=== PATIENT | male | born 1955 | race Two or more races ===

== ENCOUNTER 2021-07-01 09:17 | Inpatient (IN) | payer MEDICARE, MEDICAID ==
[~2021-07-01] VITALS: Ht 177.8 cm; Wt 98.5 kg
[2021-07-01] MEDS ORDERED: SODIUM CHLORIDE 0.9% 1,000 ML IVB ONE (10:15)
[2021-07-01] MEDS ORDERED: LORazepam 2MG/ML-1ML VIAL IV ONE (10:15)
[2021-07-01 12:19] LABS: Alcohol, Urine < 3.0 mg/dL (0-10); Amphetamine Screen, Urine NEGATIVE (NEGATIVE); Barbiturate Scree,Urine NEGATIVE (NEGATIVE); Benzodiazephine Screen, Urine NEGATIVE (NEGATIVE); Cannabinoid Screen, Urine NEGATIVE (NEGATIVE); Cocaine Screen, Urine NEGATIVE (NEGATIVE); Opiate Scree,Urine NEGATIVE (NEGATIVE); Phencyclidine Screen, Urine NEGATIVE (NEGATIVE)
[2021-07-01 12:21] LABS: Urine Bacteria FEW /hpf (None Seen); Urine Blood 1+ /uL (Negative); Urine Hyaline Cast FEW /lpf (0 - 2); Urine Specific Gravity 1.021 (1.001-1.035); Urine WBC 28 /hpf (0 - 3)
[2021-07-01 13:28] LABS: Eosinophils # (auto) 0 10 ^3/uL (0-0.8); Mean Corpuscular Volume 103.1 fL (80.0-100.0); Monocytes # (auto) 1.9 10 ^3/uL (0-1.3)
[2021-07-01 13:30] LABS: Basophils # (auto) 0 10 ^3/uL (0-0.2); Basophils % (auto) 0.3 % (0.0-2.0); Hemoglobin 15.2 g/dL (13.5-17.5); Lymphocytes # (auto) 0.4 10 ^3/uL (0.4-5.4); Lymphocytes % (auto) 3.2 % (10.0-50.0); Mean Corpuscular Hemoglobin 30.1 pg (28.0-32.0); Mean Corpuscular Hgb Conc. 29.2 g/dL (32.0-36.0); Monocytes % (auto) 14.1 % (0.0-12.0); Neutrophils # (auto) 11.2 10 ^3/uL (1.6-8.6); Neutrophils % (auto) 82.4 % (37.0-80.0); Red Blood Cells 5.04 10^6/uL (4.5-5.90); Red Cell Distribution Width 13.7 % (11.8-14.3); White Blood Cell 13.6 10^3/uL (4.4-10.8)
[2021-07-01 13:43] LABS: INR 0.93 (0.9-1.15); Partial Thromboplastin Time 23.7 sec (23.6-33.0)
[2021-07-01 14:05] LABS: Albumin 2.4 g/dL (3.4-5.0); Calcium 8.8 mg/dL (8.5-10.1); Magnesium 3.9 mg/dL (1.6-2.6); Potassium 5.2 mmol/L (3.5-5.1)
[2021-07-01 14:14] LABS: BUN/Creatinine Ratio 47.9; Bilirubin, Total 0.4 mg/dL (0.2-1.0); Total Protein 6.8 g/dL (6.4-8.2)
[2021-07-01] MEDS ORDERED: POTASSIUM CHL 10MEQ/100ML 300 ML IV PRN (15:00)
[2021-07-01] MEDS ORDERED: DEXTROSE (50%) 50ML SYRG IV PRN (15:00)
[2021-07-01] MEDS ORDERED: INSULIN LANTUS (GLARGINE) 1 /0.01ml (100units/ml) SC ONE (15:00)
[2021-07-01] MEDS ORDERED: SODIUM CHLORIDE 0.9% 1,000 ML IV SCH ×5 (15:00→21:45)
[2021-07-01] MEDS ORDERED: POTASSIUM CHL 20MEQ/100ML 100 ML IV PRN ×2 (15:00→21:30)
[2021-07-01] MEDS: InsuLIN R (HUMAN) 100 UNITS in SODIUM CHL 0.9% 99 ML IV SCH (15:25)
[2021-07-01] MEDS: ACCU-CHEK COMFORT CURVE STRIP VI SCH ×6 (15:26→22:00)
[2021-07-01] MEDS ORDERED: MORPHINE SULFATE INJECTION 2 MG/ML SYRG IV PRN ×4 (15:45→16:45)
[2021-07-01] MEDS ORDERED: NITROGLYCERIN 0.4 MG SL TAB SL PRN ×2 (15:45→16:45)
[2021-07-01] MEDS ORDERED: LACTATED RINGER'S 2,000 ML IV ONE (15:45)
[2021-07-01] MEDS ORDERED: SODIUM CHLORIDE 0.9% 2,000 ML IV ONE (15:45)
[2021-07-01] MEDS ORDERED: LABETALOL HCL 5 MG/ML 4ML SYRINGE IV ONE (16:30)
[2021-07-01] MEDS ORDERED: ACETAMINOPHEN 325 MG TAB PO PRN (16:30)
[2021-07-01] MEDS ORDERED: VANCOMYCIN PER PHARMACY 1,000 MG IV SCH (16:30)
[2021-07-01] MEDS ORDERED: PANTOPRAZOLE 40 MG/10 ML VIAL INJ IV ONE (16:45)
[2021-07-01] MEDS ORDERED: DOCUSATE SOD 100 MG CAP PO PRN (16:45)
[2021-07-01] MEDS ORDERED: ONDANSETRON HCL 4 MG/2 ML VIAL IV PRN (16:45)
[2021-07-01] MEDS ORDERED: IPRATROPIUM BROM 0.5 MG/2.5ML INH SOL NEB ONE (16:45)
[2021-07-01] MEDS ORDERED: BUDESONIDE (INHALATION) 0.5 MG/2 ML NEB NEB ONE (16:45)
[2021-07-01] MEDS ORDERED: HYDROcodone-ACET 5/325MG TAB PO PRN (16:45)
[2021-07-01] MEDS ORDERED: LORazepam 0.5 MG TAB PO PRN (16:45)
[2021-07-01 17:19] LABS: Cholesterol 191 mg/dL (< 200); HDL Cholesterol 20 mg/dL (40-59); Triglycerides 505 mg/dL (< 150)
[2021-07-01] MEDS ORDERED: IPRATROPIUM BROM 0.5 MG/2.5ML INH SOL NEB SCH (18:00)
[2021-07-01] MEDS: SODIUM CHLORIDE 0.9% 1,000 ML IV SCH ×5 (18:26→23:45)
[2021-07-01] MEDS: PIPERACILLIN-TAZOB 3.375GM 100 ML IV SCH (18:28)
[2021-07-01] MEDS ORDERED: LABETALOL HCL 5 MG/ML 4ML SYRINGE IV PRN (18:30)
[2021-07-01] MEDS ORDERED: ENOXAPARIN SOD 100 MG/1 ML SYRINGE SC ONE (18:45)
[2021-07-01 18:55] LABS: Potassium 3.3 mmol/L (3.5-5.1)
[2021-07-01 19:03] LABS: BUN/Creatinine Ratio 51.2
[2021-07-01] MEDS ORDERED: POTASSIUM CHL 20MEQ/100ML 200 ML IV PRN (21:30)
[2021-07-01] MEDS ORDERED: ATORVASTATIN 20 MG TAB PO SCH (22:00)
[2021-07-01] MEDS ORDERED: BUDESONIDE (INHALATION) 0.5 MG/2 ML NEB NEB SCH (22:00)
[2021-07-01] MEDS ORDERED: POTASSIUM CHL 20MEQ/100ML 100 ML IV ONE (22:10)
[2021-07-01] MEDS ORDERED: POTASSIUM CHL 10MEQ/100ML 100 ML IV PRN (23:00)
[2021-07-01] MEDS ORDERED: VANCOMYCIN 1GM/250ML 250 ML IV ONE (23:15)
[2021-07-02] MEDS: PIPERACILLIN-TAZOB 3.375GM 100 ML IV SCH ×4 (00:49→18:00)
[2021-07-02] MEDS: POTASSIUM CHL 10MEQ/100ML 300 ML IV PRN ×2 (00:51→10:05)
[2021-07-02] MEDS: ACCU-CHEK COMFORT CURVE STRIP VI SCH ×16 (01:34→22:30)
[2021-07-02] MEDS: LORazepam 2MG/ML-1ML VIAL IV PRN ×2 (02:16→06:08)
[2021-07-02] MEDS: SODIUM CHLORIDE 0.9% 1,000 ML IV SCH ×5 (02:30→13:07)
[2021-07-02 03:28] LABS: BUN/Creatinine Ratio 46.5; Calcium 7.9 mg/dL (8.5-10.1); Potassium 3.4 mmol/L (3.5-5.1)
[2021-07-02] MEDS ORDERED: POTASSIUM CHL 10MEQ/100ML 100 ML IV PRN (05:30)
[2021-07-02 07:38] LABS: Basophils # (auto) 0 10 ^3/uL (0-0.2); Basophils % (auto) 0.2 % (0.0-2.0); Eosinophils # (auto) 0 10 ^3/uL (0-0.8); Eosinophils % (auto) 0.1 % (0.0-7.0); Hematocrit 40.9 % (41.0-53.0); Hemoglobin 13.8 g/dL (13.5-17.5); Lymphocytes # (auto) 0.4 10 ^3/uL (0.4-5.4); Lymphocytes % (auto) 3.1 % (10.0-50.0); Mean Corpuscular Hemoglobin 30.6 pg (28.0-32.0); Mean Corpuscular Hgb Conc. 33.8 g/dL (32.0-36.0); Mean Corpuscular Volume 90.7 fL (80.0-100.0); Monocytes # (auto) 1.5 10 ^3/uL (0-1.3); Monocytes % (auto) 11.4 % (0.0-12.0); Neutrophils # (auto) 11.2 10 ^3/uL (1.6-8.6); Neutrophils % (auto) 85.2 % (37.0-80.0); Red Blood Cells 4.51 10^6/uL (4.5-5.90); Red Cell Distribution Width 12.7 % (11.8-14.3); White Blood Cell 13.1 10^3/uL (4.4-10.8)
[2021-07-02 07:45] LABS: Potassium 3.7 mmol/L (3.5-5.1)
[2021-07-02 07:48] LABS: INR 0.96 (0.9-1.15); Partial Thromboplastin Time 24.9 sec (23.6-33.0)
[2021-07-02 07:58] LABS: Albumin 1.9 g/dL (3.4-5.0); BUN/Creatinine Ratio 44.3; Bilirubin, Total 0.2 mg/dL (0.2-1.0); Calcium 7.5 mg/dL (8.5-10.1); Magnesium 2.1 mg/dL (1.6-2.6); Phosphorus 3.9 mg/dL (2.5-4.90); Total Protein 5.5 g/dL (6.4-8.2); Uric Acid 7.8 mg/dL (3.5-7.2)
[2021-07-02] MEDS: ASPirin 81 mg TAB PO SCH (10:00)
[2021-07-02] MEDS: PANTOPRAZOLE 40 MG/10 ML VIAL INJ IV SCH (10:00)
[2021-07-02 12:22] LABS: BUN/Creatinine Ratio 38.8; Calcium 7.3 mg/dL (8.5-10.1); Potassium 3.8 mmol/L (3.5-5.1)
[2021-07-02] MEDS ORDERED: MAGNESIUM SULFATE 1GM/100ML 200 ML IV PRN (13:45)
[2021-07-02] MEDS: D5W/SOD CHL 0.45%/KCL 20MEQ 1,000 ML IV SCH ×2 (14:09→21:00)
[2021-07-02] MEDS: InsuLIN R (HUMAN) 100 UNITS in SODIUM CHL 0.9% 99 ML IV SCH ×2 (15:09→15:18)
[2021-07-02] MEDS ORDERED: InsuLIN R (HUMAN) 100 UNITS in SODIUM CHL 0.9% 99 ML IV SCH (18:30)
[2021-07-02 20:57] LABS: BUN/Creatinine Ratio 30.6; Potassium 3.7 mmol/L (3.5-5.1)
[2021-07-02] MEDS ORDERED: ENOXAPARIN SOD 100 MG/1 ML SYRINGE SC SCH (22:00)
[2021-07-02] MEDS: INSULIN LANTUS (GLARGINE) 1 /0.01ml (100units/ml) SC SCH (23:00)
[2021-07-03] MEDS: ACCU-CHEK COMFORT CURVE STRIP VI SCH ×3 (00:16→03:00)
[2021-07-03 02:19] LABS: BUN/Creatinine Ratio 27.5; Calcium 6.9 mg/dL (8.5-10.1)
[2021-07-03] MEDS: D5W/SOD CHL 0.45%/KCL 20MEQ 1,000 ML IV SCH (03:05)
[2021-07-03] MEDS ORDERED: LEVALBUTEROL HCL 1.25 MG/3 ML NEB ONE (03:07)
[2021-07-03] MEDS ORDERED: IPRATROPIUM BROM 0.5 MG/2.5ML INH SOL ONE (03:07)
[2021-07-03] MEDS ORDERED: IPRATROPIUM BROM 0.5 MG/2.5ML INH SOL NEB ONE (03:15)
[2021-07-03] MEDS ORDERED: EPINEPHrine HCL 0.5 ML NEB ONE (03:29)
[2021-07-03] MEDS ORDERED: EPINEPHrine HCL 0.5 ML NEB NEB ONE (03:30)
[2021-07-03] MEDS: InsuLIN REG 1unit/0.01ml Soln (100units/ml) SC SCH ×5 (04:00→20:27)
[2021-07-03] MEDS ORDERED: LEVALBUTEROL HCL 1.25 MG/3 ML NEB NEB SCH (06:00)
[2021-07-03] MEDS: PIPERACILLIN-TAZOB 3.375GM 100 ML IV SCH ×4 (06:09→12:18)
[2021-07-03 08:53] LABS: Basophils # (auto) 0 10 ^3/uL (0-0.2); Basophils % (auto) 0.4 % (0.0-2.0); Eosinophils # (auto) 0.1 10 ^3/uL (0-0.8); Eosinophils % (auto) 0.5 % (0.0-7.0); Hematocrit 41.5 % (41.0-53.0); Hemoglobin 13.9 g/dL (13.5-17.5); Lymphocytes # (auto) 0.7 10 ^3/uL (0.4-5.4); Lymphocytes % (auto) 6.3 % (10.0-50.0); Mean Corpuscular Hemoglobin 31.4 pg (28.0-32.0); Mean Corpuscular Hgb Conc. 33.5 g/dL (32.0-36.0); Mean Corpuscular Volume 93.6 fL (80.0-100.0); Monocytes # (auto) 1.2 10 ^3/uL (0-1.3); Monocytes % (auto) 11.9 % (0.0-12.0); Neutrophils # (auto) 8.3 10 ^3/uL (1.6-8.6); Neutrophils % (auto) 80.9 % (37.0-80.0); Red Blood Cells 4.44 10^6/uL (4.5-5.90); Red Cell Distribution Width 12.8 % (11.8-14.3); White Blood Cell 10.3 10^3/uL (4.4-10.8)
[2021-07-03 09:44] LABS: Albumin 1.7 g/dL (3.4-5.0); BUN/Creatinine Ratio 24.1; Calcium 7.3 mg/dL (8.5-10.1); Magnesium 1.8 mg/dL (1.6-2.6)
[2021-07-03 09:56] LABS: Bilirubin, Total 0.2 mg/dL (0.2-1.0); Total Protein 6.3 g/dL (6.4-8.2)
[2021-07-03] MEDS: ASPirin 81 mg TAB PO SCH ×2 (10:00→10:14)
[2021-07-03] MEDS: PANTOPRAZOLE 40 MG/10 ML VIAL INJ IV SCH (10:13)
[2021-07-03] MEDS ORDERED: cefTRIAXone 1GM/50ML D5W 50 ML IV ONE (14:45)
[2021-07-03] MEDS ORDERED: D5W/SOD CHL 0.45% 1,000 ML IV SCH (15:00)
[2021-07-03] MEDS ORDERED: MAGNESIUM SULFATE 1GM/100ML 100 ML IV ONE (15:00)
[2021-07-03 19:16] LABS: BUN/Creatinine Ratio 20.2; Calcium 7.3 mg/dL (8.5-10.1); Potassium 3.6 mmol/L (3.5-5.1)
[2021-07-03] MEDS: METOPROLOL TARTRATE 25 MG TAB PO SCH (22:00)
[2021-07-03] MEDS: ATORVASTATIN 20 MG TAB PO SCH (22:00)
[2021-07-03] MEDS ORDERED: ACETAMINOPHEN 650 MG RECT SUPP PR PRN (22:30)
[2021-07-03] MEDS ORDERED: METOPROLOL TARTRATE 1MG/1ML-5ML VIAL IV ONE (22:45)
[2021-07-03] MEDS: ENOXAPARIN SOD 80 MG/0.8ML SYRINGE SC SCH (22:50)
[2021-07-03] MEDS: D5W 5% 1,000 ML IV SCH (23:01)
[2021-07-04] MEDS ORDERED: VANCOMYCIN PER PHARMACY 0 MG IV SCH (00:30)
[2021-07-04] MEDS ORDERED: VANCOMYCIN 1GM/250ML 250 ML IV ONE (01:00)
[2021-07-04] MEDS: InsuLIN REG 1unit/0.01ml Soln (100units/ml) SC SCH ×6 (01:30→20:00)
[2021-07-04] MEDS ORDERED: METOPROLOL TARTRATE 1MG/1ML-5ML VIAL IV SCH (02:00)
[2021-07-04 06:23] LABS: Basophils # (auto) 0 10 ^3/uL (0-0.2); Basophils % (auto) 0.2 % (0.0-2.0); Eosinophils # (auto) 0.1 10 ^3/uL (0-0.8); Eosinophils % (auto) 0.5 % (0.0-7.0); Hematocrit 41.7 % (41.0-53.0); Hemoglobin 13.8 g/dL (13.5-17.5); Lymphocytes # (auto) 0.7 10 ^3/uL (0.4-5.4); Lymphocytes % (auto) 6.6 % (10.0-50.0); Mean Corpuscular Hemoglobin 31.1 pg (28.0-32.0); Mean Corpuscular Hgb Conc. 33.1 g/dL (32.0-36.0); Mean Corpuscular Volume 93.8 fL (80.0-100.0); Monocytes # (auto) 1.2 10 ^3/uL (0-1.3); Monocytes % (auto) 10.4 % (0.0-12.0); Neutrophils # (auto) 9.3 10 ^3/uL (1.6-8.6); Neutrophils % (auto) 82.3 % (37.0-80.0); Nucleated Red Blood Cells % 0.1 %; Red Blood Cells 4.45 10^6/uL (4.5-5.90); Red Cell Distribution Width 13.4 % (11.8-14.3); White Blood Cell 11.3 10^3/uL (4.4-10.8)
[2021-07-04 06:37] LABS: Potassium 4.3 mmol/L (3.5-5.1)
[2021-07-04] MEDS: D5W 5% 1,000 ML IV SCH ×3 (06:41→23:57)
[2021-07-04] MEDS: INSULIN LANTUS (GLARGINE) 1 /0.01ml (100units/ml) SC SCH ×2 (06:55→21:34)
[2021-07-04 06:58] LABS: Albumin 1.7 g/dL (3.4-5.0); BUN/Creatinine Ratio 16.8; Bilirubin, Total 0.3 mg/dL (0.2-1.0); Calcium 7.5 mg/dL (8.5-10.1); Magnesium 2.9 mg/dL (1.6-2.6); Total Protein 6.4 g/dL (6.4-8.2)
[2021-07-04] MEDS: cefTRIAXone 1GM/50ML D5W 50 ML IV SCH (09:22)
[2021-07-04] MEDS: ASPirin 81 mg TAB PO SCH (11:02)
[2021-07-04] MEDS: PANTOPRAZOLE 40 MG/10 ML VIAL INJ IV SCH (11:02)
[2021-07-04] MEDS: METOPROLOL TARTRATE 25 MG TAB PO SCH ×2 (11:03→21:32)
[2021-07-04] MEDS: CLINDAMYCIN 600MG IV 50 ML IV SCH ×2 (14:16→21:26)
[2021-07-04] MEDS: ATORVASTATIN 20 MG TAB PO SCH (21:32)
[2021-07-04] MEDS: ENOXAPARIN SOD 80 MG/0.8ML SYRINGE SC SCH (21:32)
[2021-07-04 22:00] VITALS: BP 130/72
[2021-07-05] MEDS: InsuLIN REG 1unit/0.01ml Soln (100units/ml) SC SCH ×7 (00:02→20:00)
[2021-07-05 05:00] VITALS: BP 128/62
[2021-07-05] MEDS: INSULIN LANTUS (GLARGINE) 1 /0.01ml (100units/ml) SC SCH ×2 (06:20→22:00)
[2021-07-05] MEDS: CLINDAMYCIN 600MG IV 50 ML IV SCH ×3 (06:20→22:00)
[2021-07-05 07:18] LABS: Albumin 1.6 g/dL (3.4-5.0); BUN/Creatinine Ratio 14.8; Bilirubin, Total 0.2 mg/dL (0.2-1.0); Calcium 7.5 mg/dL (8.5-10.1); Total Protein 5.8 g/dL (6.4-8.2)
[2021-07-05 07:27] LABS: Basophils # (auto) 0 10 ^3/uL (0-0.2); Basophils % (auto) 0.2 % (0.0-2.0); Eosinophils # (auto) 0.2 10 ^3/uL (0-0.8); Eosinophils % (auto) 2.4 % (0.0-7.0); Hematocrit 41.3 % (41.0-53.0); Hemoglobin 13.1 g/dL (13.5-17.5); Lymphocytes # (auto) 0.8 10 ^3/uL (0.4-5.4); Lymphocytes % (auto) 8.4 % (10.0-50.0); Mean Corpuscular Hgb Conc. 31.7 g/dL (32.0-36.0); Mean Corpuscular Volume 94.9 fL (80.0-100.0); Monocytes # (auto) 0.8 10 ^3/uL (0-1.3); Monocytes % (auto) 8.3 % (0.0-12.0); Neutrophils # (auto) 7.8 10 ^3/uL (1.6-8.6); Neutrophils % (auto) 80.7 % (37.0-80.0); Nucleated Red Blood Cells % 0.1 %; Red Blood Cells 4.35 10^6/uL (4.5-5.90); Red Cell Distribution Width 13.4 % (11.8-14.3); White Blood Cell 9.7 10^3/uL (4.4-10.8)
[2021-07-05 09:00] VITALS: BP 106/68
[2021-07-05] MEDS: cefTRIAXone 1GM/50ML D5W 50 ML IV SCH (09:00)
[2021-07-05] MEDS: ASPirin 81 mg TAB PO SCH (10:00)
[2021-07-05] MEDS: PANTOPRAZOLE 40 MG/10 ML VIAL INJ IV SCH (10:00)
[2021-07-05] MEDS: METOPROLOL TARTRATE 25 MG TAB PO SCH ×2 (10:00→22:00)
[2021-07-05] MEDS ORDERED: POTASSIUM EFFERVESENT TAB 25 MEQ PO ONE (11:15)
[2021-07-05] MEDS: ACETAMINOPHEN 325 MG TAB PO PRN (16:39)
[2021-07-05 17:00] VITALS: BP 111/57
[2021-07-05] MEDS: D5W 5% 1,000 ML IV SCH ×2 (18:17→21:15)
[2021-07-05 21:35] VITALS: BP 136/75
[2021-07-05] MEDS: ATORVASTATIN 20 MG TAB PO SCH (22:00)
[2021-07-05] MEDS: ENOXAPARIN SOD 80 MG/0.8ML SYRINGE SC SCH (22:00)
[2021-07-06] MEDS: FREE WATER GT SCH ×6 (02:00→22:00)
[2021-07-06] MEDS: InsuLIN REG 1unit/0.01ml Soln (100units/ml) SC SCH ×6 (03:44→20:23)
[2021-07-06 05:22] VITALS: BP 123/66
[2021-07-06] MEDS: CLINDAMYCIN 600MG IV 50 ML IV SCH (05:28)
[2021-07-06 06:46] LABS: Albumin 1.7 g/dL (3.4-5.0); Calcium 7.4 mg/dL (8.5-10.1); Potassium 3.1 mmol/L (3.5-5.1)
[2021-07-06 06:50] LABS: BUN/Creatinine Ratio 14.3; Bilirubin, Total 0.2 mg/dL (0.2-1.0); Total Protein 5.1 g/dL (6.4-8.2)
[2021-07-06] MEDS: INSULIN LANTUS (GLARGINE) 1 /0.01ml (100units/ml) SC SCH ×2 (07:00→22:30)
[2021-07-06] MEDS ORDERED: DOXYCYCLINE 100MG/250ML 250 ML IV SCH (07:45)
[2021-07-06 09:00] VITALS: BP 135/73
[2021-07-06] MEDS: cefTRIAXone 1GM/50ML D5W 50 ML IV SCH (09:23)
[2021-07-06] MEDS: ASPirin 81 mg TAB PO SCH (10:00)
[2021-07-06] MEDS: METOPROLOL TARTRATE 25 MG TAB PO SCH ×2 (10:00→22:12)
[2021-07-06] MEDS: PANTOPRAZOLE 40 MG/10 ML VIAL INJ IV SCH (11:24)
[2021-07-06 13:00] VITALS: BP 124/73
[2021-07-06] MEDS: D5W 5% 1,000 ML IV SCH ×2 (13:15→22:19)
[2021-07-06] MEDS: POTASSIUM CHL 20MEQ/100ML 100 ML IV SCH ×2 (13:50→19:58)
[2021-07-06] MEDS ORDERED: CHOLECALCIFEROL (VITD3) 2,000 UNIT CAP/TAB PO ONE (15:00)
[2021-07-06] MEDS ORDERED: FOLIC ACID 1 MG TAB PO ONE (15:15)
[2021-07-06] MEDS ORDERED: THIAMINE HCL 100 MG TAB PO ONE (15:15)
[2021-07-06] MEDS ORDERED: MULTIPLE VITAMINS W/ MINERALS TAB PO ONE (15:15)
[2021-07-06] MEDS ORDERED: BENA40TA8 PO (15:50)
[2021-07-06] MEDS ORDERED: BUDE1AER4 IN (15:51)
[2021-07-06] MEDS ORDERED: PRE5T PO (15:51)
[2021-07-06] MEDS ORDERED: GABA300C10 PO (15:51)
[2021-07-06] MEDS ORDERED: CHLO25TA2 PO (15:51)
[2021-07-06] MEDS ORDERED: UMEC1INH INH (15:51)
[2021-07-06] MEDS ORDERED: METF-370 PO (15:51)
[2021-07-06] MEDS ORDERED: PRAV20TA3 PO (15:51)
[2021-07-06] MEDS ORDERED: CITA-77 PO (15:51)
[2021-07-06] MEDS ORDERED: ALBUAER3 INH (15:51)
[2021-07-06 17:00] VITALS: BP 142/76
[2021-07-06] MEDS ORDERED: POTASSIUM CHL 20MEQ/100ML 100 ML IV ONE (19:54)
[2021-07-06 21:58] VITALS: BP 144/62
[2021-07-06] MEDS: ATORVASTATIN 20 MG TAB PO SCH (22:11)
[2021-07-06] MEDS: ENOXAPARIN SOD 80 MG/0.8ML SYRINGE SC SCH (22:12)
[2021-07-06] MEDS: ACETAMINOPHEN 325 MG TAB PO PRN (22:30)
[2021-07-07] MEDS: InsuLIN REG 1unit/0.01ml Soln (100units/ml) SC SCH ×5 (00:20→17:40)
[2021-07-07 01:17] VITALS: BP 144/62
[2021-07-07] MEDS: D5W 5% 1,000 ML IV SCH ×3 (05:57→21:57)
[2021-07-07] MEDS: cefTRIAXone 1GM/50ML D5W 50 ML IV SCH (08:34)
[2021-07-07] MEDS: FOLIC ACID 1 MG TAB PO SCH (08:35)
[2021-07-07] MEDS: ASPirin 81 mg TAB PO SCH (08:35)
[2021-07-07] MEDS: PANTOPRAZOLE 40 MG/10 ML VIAL INJ IV SCH (08:35)
[2021-07-07] MEDS: THIAMINE HCL 100 MG TAB PO SCH (08:35)
[2021-07-07] MEDS: CHOLECALCIFEROL (VITD3) 2,000 UNIT CAP/TAB PO SCH (08:35)
[2021-07-07] MEDS: MULTIPLE VITAMINS W/ MINERALS TAB PO SCH (08:36)
[2021-07-07] MEDS: METOPROLOL TARTRATE 25 MG TAB PO SCH ×2 (08:36→21:51)
[2021-07-07 09:00] VITALS: BP 140/79
[2021-07-07 09:27] LABS: Basophils # (auto) 0 10 ^3/uL (0-0.2); Basophils % (auto) 0.3 % (0.0-2.0); Eosinophils # (auto) 0.2 10 ^3/uL (0-0.8); Eosinophils % (auto) 2.3 % (0.0-7.0); Hematocrit 42.5 % (41.0-53.0); Lymphocytes # (auto) 0.8 10 ^3/uL (0.4-5.4); Lymphocytes % (auto) 8.4 % (10.0-50.0); Mean Corpuscular Hemoglobin 30.6 pg (28.0-32.0); Mean Corpuscular Hgb Conc. 32.9 g/dL (32.0-36.0); Mean Corpuscular Volume 92.8 fL (80.0-100.0); Monocytes # (auto) 0.9 10 ^3/uL (0-1.3); Neutrophils # (auto) 7.9 10 ^3/uL (1.6-8.6); Nucleated Red Blood Cells % 0.2 %; Red Blood Cells 4.57 10^6/uL (4.5-5.90); Red Cell Distribution Width 13.1 % (11.8-14.3); White Blood Cell 9.8 10^3/uL (4.4-10.8)
[2021-07-07 09:32] LABS: Calcium 7.5 mg/dL (8.5-10.1); Magnesium 2.5 mg/dL (1.6-2.6); Potassium 3.7 mmol/L (3.5-5.1)
[2021-07-07] MEDS ORDERED: DEXTROSE (50%) 50ML SYRG IV PRN (11:15)
[2021-07-07] MEDS: ACCU-CHEK COMFORT CURVE STRIP VI SCH ×2 (11:34→17:39)
[2021-07-07 12:41] VITALS: BP 138/77
[2021-07-07] MEDS: FREE WATER PO SCH ×3 (13:31→21:52)
[2021-07-07 17:00] VITALS: BP 128/71
[2021-07-07] MEDS: ACETAMINOPHEN 325 MG TAB PO PRN (21:50)
[2021-07-07] MEDS: ENOXAPARIN SOD 80 MG/0.8ML SYRINGE SC SCH (21:52)
[2021-07-07] MEDS: ATORVASTATIN 20 MG TAB PO SCH (21:52)
[2021-07-07] MEDS: INSULIN LANTUS (GLARGINE) 1 /0.01ml (100units/ml) SC SCH (22:00)
[2021-07-07 22:25] VITALS: BP 166/82
[2021-07-08] MEDS: ACCU-CHEK COMFORT CURVE STRIP VI SCH ×5 (00:02→23:41)
[2021-07-08] MEDS: InsuLIN REG 1unit/0.01ml Soln (100units/ml) SC SCH ×5 (00:04→23:48)
[2021-07-08] MEDS: FREE WATER PO SCH ×6 (02:00→21:27)
[2021-07-08 05:00] VITALS: BP 149/79
[2021-07-08] MEDS: D5W 5% 1,000 ML IV SCH ×2 (06:21→15:00)
[2021-07-08 07:26] LABS: Potassium 3.6 mmol/L (3.5-5.1)
[2021-07-08 07:41] LABS: BUN/Creatinine Ratio 11.2; Calcium 7.5 mg/dL (8.5-10.1)
[2021-07-08 09:00] VITALS: BP 135/71
[2021-07-08] MEDS: cefTRIAXone 1GM/50ML D5W 50 ML IV SCH (09:32)
[2021-07-08] MEDS: PANTOPRAZOLE 40 MG/10 ML VIAL INJ IV SCH (09:33)
[2021-07-08] MEDS: METOPROLOL TARTRATE 25 MG TAB PO SCH ×2 (09:33→21:34)
[2021-07-08] MEDS: THIAMINE HCL 100 MG TAB PO SCH (09:33)
[2021-07-08] MEDS: ASPirin 81 mg TAB PO SCH (09:33)
[2021-07-08] MEDS: MULTIPLE VITAMINS W/ MINERALS TAB PO SCH (09:33)
[2021-07-08] MEDS: FOLIC ACID 1 MG TAB PO SCH (09:33)
[2021-07-08] MEDS: CHOLECALCIFEROL (VITD3) 2,000 UNIT CAP/TAB PO SCH (09:34)
[2021-07-08 13:00] VITALS: BP 128/67
[2021-07-08 17:00] VITALS: BP 145/75
[2021-07-08] MEDS: ATORVASTATIN 20 MG TAB PO SCH (21:23)
[2021-07-08] MEDS: INSULIN LANTUS (GLARGINE) 1 /0.01ml (100units/ml) SC SCH (21:26)
[2021-07-08] MEDS: ENOXAPARIN SOD 80 MG/0.8ML SYRINGE SC SCH (21:27)
[2021-07-08 22:00] VITALS: BP 158/89
[2021-07-09] MEDS: D5W 5% 1,000 ML IV SCH (02:00)
[2021-07-09] MEDS: FREE WATER PO SCH ×4 (02:00→14:44)
[2021-07-09 05:00] VITALS: BP 130/71
[2021-07-09] MEDS: ACCU-CHEK COMFORT CURVE STRIP VI SCH ×2 (06:02→12:43)
[2021-07-09] MEDS: InsuLIN REG 1unit/0.01ml Soln (100units/ml) SC SCH ×2 (06:02→12:44)
[2021-07-09 07:29] LABS: BUN/Creatinine Ratio 10.4; Calcium 7.6 mg/dL (8.5-10.1); Potassium 3.6 mmol/L (3.5-5.1)
[2021-07-09 09:00] VITALS: BP 139/80
[2021-07-09] MEDS: PANTOPRAZOLE 40 MG/10 ML VIAL INJ IV SCH (11:06)
[2021-07-09] MEDS: cefTRIAXone 1GM/50ML D5W 50 ML IV SCH (11:06)
[2021-07-09] MEDS: ASPirin 81 mg TAB PO SCH (11:07)
[2021-07-09] MEDS: FOLIC ACID 1 MG TAB PO SCH (11:08)
[2021-07-09] MEDS: THIAMINE HCL 100 MG TAB PO SCH (11:08)
[2021-07-09] MEDS: MULTIPLE VITAMINS W/ MINERALS TAB PO SCH (11:09)
[2021-07-09] MEDS: CHOLECALCIFEROL (VITD3) 2,000 UNIT CAP/TAB PO SCH (11:09)
[2021-07-09] MEDS: METOPROLOL TARTRATE 25 MG TAB PO SCH (11:10)
[2021-07-09] MEDS ORDERED: INSLANTI SC (14:29)
[2021-07-09] MEDS ORDERED: CHOL20007 PO (14:29)
[2021-07-09] MEDS ORDERED: ASPI-378 PO (14:29)
[2021-07-09] MEDS ORDERED: LISI2.5T47 PO (14:29)
[2021-07-09] MEDS ORDERED: MET25T PO (14:29)
[2021-07-09] MEDS ORDERED: DOCU-94 PO (14:29)
[2021-07-09] MEDS ORDERED: LEVO500T31 PO (14:29)
== END 2021-07-09 18:10 | disposition home health service (06) | DRG 871 ==
LOC: ER 09:17 → EDBD 09:17 → TELE 15:35 → TELE-WESTW 07-04 17:48
PROVIDERS: ADMIT Hospitalist; ATTEND Internal Medicine
PROC: 05H933Z Insertion of Infusion Device into Right Brachial Vein, Percutaneous Approach (ICD-10-PCS; 2021-07-01)
PROC: B54MZZA Ultrasonography of Right Upper Extremity Veins, Guidance (ICD-10-PCS; 2021-07-01)
PROC: 5A09357 Assistance with Respiratory Ventilation, Less than 24 Consecutive Hours, Continuous Positive Airway Pressure (ICD-10-PCS; principal; 2021-07-06)
DX: A41.59 Other Gram-negative sepsis (principal); N17.0 Acute kidney failure with tubular necrosis; E11.10 Type 2 diabetes mellitus with ketoacidosis without coma; K85.90 Acute pancreatitis without necrosis or infection, unspecified; G92.8 Other toxic encephalopathy; J15.0 Pneumonia due to Klebsiella pneumoniae; I16.1 Hypertensive emergency; N39.0 Urinary tract infection, site not specified; E87.0 Hyperosmolality and hypernatremia; J44.0 Chronic obstructive pulmonary disease with (acute) lower respiratory infection; N18.4 Chronic kidney disease, stage 4 (severe); I12.9 Hypertensive chronic kidney disease with stage 1 through stage 4 chronic kidney disease, or unspecified chronic kidney disease; E11.40 Type 2 diabetes mellitus with diabetic neuropathy, unspecified; E86.0 Dehydration; D75.89 Other specified diseases of blood and blood-forming organs; E11.22 Type 2 diabetes mellitus with diabetic chronic kidney disease; E55.9 Vitamin D deficiency, unspecified; E78.5 Hyperlipidemia, unspecified; E86.1 Hypovolemia; E87.6 Hypokalemia; E88.09 Other disorders of plasma-protein metabolism, not elsewhere classified; G47.33 Obstructive sleep apnea (adult) (pediatric); K59.00 Constipation, unspecified; Z20.822 Contact with and (suspected) exposure to COVID-19; Z91.19 Patient's noncompliance with other medical treatment and regimen
CPT/HCPCS: 36415; 36600; 70450; 71045; 74176; 76775; 80048; 80053; 80061; 80307; 81001; 82150; 82306; 82805; 82962; 83036; 83605; 83690; 83735; 83880; 83930; 84100; 84443; 84484; 84550; 85025; 85379; 85610; 85730; 87040; 87077; 87086; 87088; 87186; 87426; 92610; 93005; 93306; 93970; 94640; 95819; 96361; 96365; 96375; 97116; 97163; 97530; 99291; C9113; G0378; J0696; J1815; J2543; J3480; J3490